=== PATIENT | female | born 1950 | race Caucasian/White ===

== ENCOUNTER → 2020-01-18 07:29 | Outpatient (REF) | payer MEDICARE, BC, SELFPAY ==
--- NOTE | 2020-01-18 07:41 | CA_ITS ---
Transthoracic Echocardiogram Patient (Last, First, Middle): Denise Rouse, Gender: Female Date of : 1950 Age: 69 Procedure Date: 01/18/2020 Procedure Type: Transthoracic Echocardiogram Location: OP Height: 162.56 cm Weight: 65.77 kg BSA: 1.71 m2 Heart Rate: bpm BP: 120 / 60 mmHg Care Manager Cna: GURVINDER Referring MD: Allen Mendez MD Symptoms: Z95.5 Presence of stent in anterior descending LCA, R06.02 Shortness of breath Study Quality: Good ECG Rhythm: Sinus Conclusions: - The left ventricular systolic function is normal. The visually estimated ejection fraction is between 55-60%. - There is mild mitral valve regurgitation. - There is mild tricuspid valve regurgitation. Findings Left Ventricle Normal left ventricular cavity size. There is normal left ventricular wall thickness. The left ventricular systolic function is normal. The visually estimated ejection fraction is between 55-60%. There is no evidence of regional wall motion abnormalities. Diastolic function is normal for age. Right Ventricle Normal right ventricular cavity size and systolic function. Atria Both atria are normal in size. Aortic Valve There is a normal trileaflet aortic valve. There is no aortic valve stenosis. There is no aortic valve regurgitation. Mitral Valve There is mild mitral annular calcification. There is mild mitral valve regurgitation. There is no mitral valve stenosis. Pulmonic Valve The pulmonic valve was not well visualized. There is trace pulmonic valve regurgitation. Tricuspid Valve Normal tricuspid valve structure. There is mild tricuspid valve regurgitation. The pulmonary artery systolic pressure is normal. Great Vessels The aortic annulus, sinuses of valsalva, and asc aorta are normal in size. Venous The inferior vena cava is normal in size and collapses greater than 50% with inspiration. Pericardium/Pleural There is no evidence of pericardial effusion. Prior Study Comparison No significant change compared to prior study dated: 04/15/2015. Measurements 2D Linear Measurements IVSd: 0.88 0.6-0.9/0.6-1.0 cm LVIDd: 4.37 3.9-5.3/4.2-5.9 cm LVIDd Index: 2.56 2.4-3.2/2.2-3.1 cm/m2 LVIDs: 2.91 2.0-3.6 cm LVPWd: 0.76 0.7-1.1 cm LA Diam: 3.30 2.7-3.8/3.0-4.0 cm LAIDs Index: 1.93 1.5-2.3 cm/m2 LV Mass: 138.97 67-162/88-224 g LV Mass Index: 81.27 43-95/49-115 g/m2 LVOT Diam: 2.00 3.0+(-)1.3 cm 2D Systolic Function EF 4C: 56.30 >55% EF 2C: 67.70 >55% EF BiP: 60.90 >55% Mitral Valve MV Pk E: 0.65 MV PK A: 0.80 MV Decel Time: 222.00 E/A: 0.80 E'Lateral: 8.22 E'Medial: 8.12 E/E' Med: 7.90 E/E' Lat: 7.80 PHT: 65.00 MVA PHT: 3.38 Decel [place]: 2.91 MR VTI: 0.76 Aortic Valve AoV Pk Cj: 0.96 AoV Pk Grad: 4.00 LVOT LVOT Pk Cj: 0.94 LVOT Mn Cj: 0.60 LVOT VTI: 0.20 LVOT Pk Grad: 4.00 LVOT Mn Grad: 2.00 LVOT Diam: 2.00 LVOT Area: 3.14 Diastolic Function MV Pk E: 0.65 MV Pk A: 0.80 E/A: 0.80 E'Medial: 8.12 E/E' Med: 7.90 E' Laterial: 8.22 E/E' Lat: 7.80 Tricuspid Valve TR Pk Cj: 1.98 TR Pk Grad: 16.00 RA Press: 3.00 RVSP: 19.00 Great Vessels Aorta Ao Asc: 3.10 2.1-3.4 cm Updated in Other Vendor System with Status of Final Allen Mendez MD electronically signed on 01/18/2020 2:34:09 PM with status of Final
== END ==
LOC: HO.CARD 07:29
PROVIDERS: PCP Internal Medicine; Visit Provider Internal Medicine
DX: R06.02 Shortness of breath (principal); I25.10 Atherosclerotic heart disease of native coronary artery without angina pectoris; Z95.5 Presence of coronary angioplasty implant and graft
CPT/HCPCS: 93306

== ENCOUNTER 2020-02-23 13:13 | Outpatient (REF) | payer MEDICARE, BC, SELFPAY | END 2020-02-23 13:14 | disposition home or self-care (01) | LOC: HO.LAB 13:13 | PROVIDERS: Visit Provider Internal Medicine | DX: Z20.828 Contact with and (suspected) exposure to other viral communicable diseases (principal) | CPT/HCPCS: C9803; U0003 ==

== ENCOUNTER 2020-10-29 12:49 | Outpatient (REF) | payer MEDICARE, BC, SELFPAY | END 2020-10-29 12:50 | disposition home or self-care (01) | LOC: HO.LAB 12:49 | PROVIDERS: PCP Internal Medicine; Visit Provider Internal Medicine | DX: Z20.822 Contact with and (suspected) exposure to COVID-19 (principal) | CPT/HCPCS: C9803; U0003; U0005 ==

== ENCOUNTER → 2020-12-26 08:30 | Outpatient (BNVA) | payer MEDICARE, BC, SELFPAY | PROVIDERS: PCP Internal Medicine; Visit Provider Internal Medicine | DX: I25.10 Atherosclerotic heart disease of native coronary artery without angina pectoris (principal); Z95.5 Presence of coronary angioplasty implant and graft | CPT/HCPCS: 93005; 99212 ==

== ENCOUNTER → 2021-12-18 08:40 | Outpatient (BNVA) | payer MEDICARE, BC, SELFPAY | PROVIDERS: PCP Internal Medicine; Referring Provider Internal Medicine; Visit Provider Internal Medicine | DX: I25.10 Atherosclerotic heart disease of native coronary artery without angina pectoris (principal); Z95.5 Presence of coronary angioplasty implant and graft | CPT/HCPCS: 93005; 99212 ==

== ENCOUNTER 2022-12-10 08:50 | Outpatient (AMB) | payer MEDICARE, BC, SELFPAY ==
[2022-12-10 09:21] VITALS: BP 112/60; PULSE 71; BMI 26.5
--- NOTE | 2022-12-10 09:21 | A.OFFVIS_ITS ---
Intake Vital Signs 12/10/22 09:21 Height 5 ft 4.5 in Weight 156 lb 8.451 oz BMI 26.5 BP 112/60 Blood Pressure Location Rt brachial Position Sitting Pulse 71 Intake Visit Reasons: 1 yr f/up Intake Note: 1 year follow up w/ EKG Pharmacy Tech Customer Service Required: No Accompanied by: Self / Same As Patient Allergies No Known Allergies [No Known Allergies*] Allergy (Verified 12/10/22 09:22) Medication List - Last Reconciled 12/10/22 by Allen Mendez MD aspirin (Adult Low Dose Aspirin) 81 mg PO DAILY atorvastatin 80 mg PO DAILY cholecalciferol (vitamin D3) 50 mcg PO DAILY metoprolol succinate ER 25 mg PO DAILY multivitamin 1 tab PO DAILY omega-3 fatty acids (Fish Oil Concentrate) 1,000 mg PO DAILY sertraline 100 mg PO DAILY HPI HPI Comments History of Present Illness Details Denise returns for follow-up regarding coronary artery disease.? To recall, she underwent cardiac catheterization and drug-eluting stenting of the LAD in 2015. She states that she is doing fine. No complaints like angina or shortness of breath or in fact anything cardiac sounding. She states she is getting along fine. Regular physical activity with no issues. [facility] Medical History (Updated 12/26/20 @ 08:54 by Allen Mendez MD) Atherosclerotic cardiovascular disease Surgical History Stented coronary artery H/O: hysterectomy H/O lumpectomy Family History Mother Heart disease Atrial fibrillation Heart valve replaced Dementia Father Heart disease Heart attack Alcoholic Brother CAD (coronary artery disease) Social History Alcohol intake: current Alcohol intake frequency: a few times a month Patient Tobacco Use Status: Never used Tobacco Review of Systems Const Denies weakness ENT Denies dizziness Card Denies chest pain, Denies chest pain with activity, Denies syncope, Denies rapid heart rate, Denies pedal edema, Denies edema, Denies leg edema, Denies lightheadedness, Denies palpitations, Denies dyspnea, Denies dyspnea on exertion and Denies orthopnea Resp Denies cough, Denies dyspnea and Denies dyspnea on exertion GI Denies hematochezia and Denies change in stool character Musc Denies abnormal gait, Denies muscle cramps, Denies muscle weakness, Denies numbness, Denies radiating pain into limb and Denies tingling Neuro Denies abnormal gait, Denies dizziness, Denies syncope, Denies numbness, Denies tingling and Denies weakness Endo Denies palpitations Physical Exam Vital Signs: Last Vital Signs Pulse 71 12/10/22 09:21 BP 112/60 12/10/22 09:21 BMI result Body Mass Index 26.5 Const General: comfortable and no acute distress Orientation/consciousness: patient oriented x3 HEENT Other: Unremarkable Head: Yes normal to inspection Neck Neck: Yes normal visual inspection Chest Chest palpation & inspection: normal inspection of the chest Resp Auscultation: clear to auscultation bilaterally Cardio Palpation: normal PMI Heart sounds: S1 normal heart sound present, S2 normal heart sound present, no gallops, no murmurs and no rubs GI Palpation (GI): Soft to palpation Back/Spine/Pelvis Other: unremarkable Skin General skin exam: no rashes or lesions noted Neuro General: patient oriented x3 Extrem General: Yes normal to inspection Psych Mental Status: mental status grossly normal Office Procedures EKG Details: EKG with sinus rhythm at 71/Min; no significant ST-T changes; [place] [id number], Complete Assessment & Plan Assessment & Plan (1) Atherosclerotic cardiovascular disease: Code(s): I25.10 - Atherosclerotic heart disease of [place] coronary artery without angina pectoris (2) Stented coronary artery: Code(s): Z95.5 - Presence of coronary angioplasty implant and graft Plan Overall, stable cardiac status. Continue aspirin, statins. LDL cholesterol well controlled at 68 mg/dL. Triglycerides 68 mg/dL. HDL 59 mg/dL. Follow-up in 1 year. Continue regular physical activity and maintain healthy lifestyle. If any interim concerns, she will contact us. Coding Level of Care Code Est Pt Level 3 (87839) Diagnoses Atherosclerotic cardiovascular disease I25.10 Stented coronary artery Z95.5 CPT Codes EKG - CPT: 14489-[id number], Complete ([id number])
== END 2022-12-10 09:37 | disposition home or self-care (01) ==
PROVIDERS: PCP Internal Medicine; Referring Provider Internal Medicine; Visit Provider Internal Medicine
DX: I25.10 Atherosclerotic heart disease of native coronary artery without angina pectoris (principal); Z95.5 Presence of coronary angioplasty implant and graft
CPT/HCPCS: 93010; 99213

== ENCOUNTER → 2022-12-10 08:50 | Outpatient (BNVA) | payer MEDICARE, BC, SELFPAY | PROVIDERS: PCP Internal Medicine; Referring Provider Internal Medicine; Visit Provider Internal Medicine | DX: I25.10 Atherosclerotic heart disease of native coronary artery without angina pectoris (principal); I10 Essential (primary) hypertension; Z95.5 Presence of coronary angioplasty implant and graft | CPT/HCPCS: 93005; 99212 ==

== ENCOUNTER 2023-01-20 11:08 | Emergency (ER) | payer MEDICARE, BC, SELFPAY ==
--- NOTE | ~2023-01-20 | XR_ITS ---
EXAMINATION: XR ABDOMEN KUB CLINICAL INDICATION: Constipation. No bowel movement since and of December COMPARISON: None available. TECHNIQUE: AP view of the abdomen. FINDINGS: Moderate fecal retention, air identified in the ascending colon and rectum. Solid visceral outlines are obscured. No abnormal calcifications. Lung bases are clear. Bony structures are intact. XR/XR KUB IMPRESSION: Moderate fecal retention.
[2023-01-20 11:15] VITALS: BP 150/66; PULSE 73; RESP 17; TEMP 36.4; O2SAT 98; BMI 28.0
--- NOTE | 2023-01-20 11:16 | ED.ABDPAIN ---
HPI - Abdominal Pain General Chief Complaint: General Medical Stated Complaint: constipation Time Seen by Provider: 01/20/23 14:27 Source: patient Mode of arrival: ambulatory Limitations: no limitations History of Present Illness HPI narrative: Patient is a 72 year old assigned female at with a history of atherosclerotic cardiovascular disease presenting to the emergency department today with constipation. Patient states that she has not had a full bowel movement since the end of December. Patient denies any dizziness, lightheadedness, abdominal pain, nausea, vomiting, fever, chills, blurry vision, double vision, loss of vision, chest pain, difficulty breathing, shortness of breath, back pain, night sweats, pain with urination, increased urinary frequency, increased urinary urgency, blood in her urine or stool, syncope or a near syncopal episode, recent trauma or falls, bowel incontinence, bladder incontinence, bowel retention, bladder retention, or any other complaints at this time. Pertinent past history: constipation Onset (ago): week(s) Pain Consistency: constant Related Data Home Medications Medication Instructions Recorded Confirmed aspirin 81 mg tablet,delayed 81 mg PO DAILY 12/26/20 12/10/22 release (Adult Low Dose Aspirin) atorvastatin 80 mg tablet 80 mg PO DAILY 12/26/20 12/10/22 cholecalciferol (vitamin D3) 50 50 mcg PO DAILY 12/26/20 12/10/22 mcg (2,000 unit) capsule metoprolol succinate 25 mg 25 mg PO DAILY 12/26/20 12/10/22 tablet,extended release 24 hr multivitamin 1 tab PO DAILY 12/26/20 12/10/22 omega-3 fatty acids 1,000 mg 1,000 mg PO DAILY 12/26/20 12/10/22 capsule (Fish Oil Concentrate) sertraline 100 mg tablet 100 mg PO DAILY 12/26/20 12/10/22 Allergies Allergy/AdvReac Type Severity Reaction Status Date / Time No Known Allergies Allergy Verified 12/10/22 09:22 [No Known Allergies*] Review of Systems Constitutional: Reports no additional constitutional complaints, Denies chills, Denies fever(s) and Denies night sweats Eyes: Reports no additional eye complaints, Denies blurry vision, Denies change in vision, Denies diplopia, Denies eye discharge, Denies loss of vision and Denies eye pain Denies dizziness Cardiovascular: Reports no additional cardiovascular complaints, Denies chest pain, Denies lightheadedness, Denies Loss of Consciousness and Denies dyspnea Respiratory: Reports no additional respiratory complaints and Denies dyspnea Gastrointestinal: Reports no additional gastrointestinal complaints, Denies abdominal pain, Denies melena, Denies hematochezia, Denies change in bowel habits, Denies change in stool character and Reports constipation Genitourinary: Denies hematuria, Denies urinary frequency, Denies dysuria, Denies urinary incontinence, Denies urinary hesitancy and Denies urinary urgency Musculoskeletal: Reports no additional musculoskeletal complaints, Denies numbness and Denies tingling Denies dizziness, Denies loss of vision, Denies numbness and Denies tingling Psychiatric: Reports no additional psychiatric complaints Endocrine: Reports no additional endocrine complaints Hematologic/Lymphatic: Reports no additional hematologic/lymphatic complaints Allergic/Immunologic: Reports no additional allergic/immunologic complaints PMFSH Past Medical History Attestation statement: The following information was validated with the patient. Source: old records reviewed and nursing notes reviewed Medical History Atherosclerotic cardiovascular disease Surgical History Stented coronary artery H/O: hysterectomy H/O lumpectomy Family History Family History Mother Heart disease Atrial fibrillation Heart valve replaced Dementia Father Heart disease Heart attack Alcoholic Brother CAD (coronary artery disease) Social History Social History Alcohol intake: current Alcohol intake frequency: a few times a month Patient Tobacco Use Status: Never used Tobacco Advance Directives: No Advance Directives Information Provided: Yes Physical Exam ED Vital Signs: Vital Signs - 24 hr 01/20/23 11:15 Temperature 97.5 F Pulse Rate 73 Respiratory Rate 17 Blood Pressure 150/66 H Pulse Oximetry 98 Oxygen Delivery Method Room Air BMI result Body Mass Index 28.0 Const General: cooperative, no acute distress, alert and awake Nutritional Appearance: well nourished Orientation/consciousness: patient oriented x3 Limitations: no limitations HENMT Head: Yes normal to inspection and Yes atraumatic Ears: hearing grossly normal bilaterally and external ears normal General nose exam: Normal external nose present, no nasal discharge noted and no epistaxis Face and sinus: Yes normal facial exam, No abrasion and No laceration Mouth: Normal oral and palatal mucosa present, no drooling and no muffled voice Eyes General: appearance normal, both eyes and all related structures Periorbital: periorbital findings normal Eyelids: Yes eyelids normal Conjunctivae: conjunctivae normal Pupils: Equal, round and reactive pupils present EOM: EOMs intact bilaterally Neck Neck: Yes normal visual inspection, Yes full ROM and Yes no lymphadenopathy Chest Chest palpation & inspection: normal inspection of the chest Resp Effort & Inspection: normal respiratory effort and able to speak in complete sentences GI Inspection: Yes normal to inspection Palpation (GI): Soft to palpation, not firm, nontender and no guarding Neuro General: patient oriented x3 and moves all extremities Cranial nerves: Yes Equal, round and reactive pupils present Cognition (Neuro): normal cognition Motor exam (neuro): 5/5 motor strength present throughout Sensory Exam: Normal double simultaneous stimulation for sensation Coordination: [id number] test normal Extrem General: Yes normal to inspection, Yes full ROM and Yes capillary refill normal Psych Appearance: grossly normal Mental Status: mental status grossly normal Affect: normal affect Attitude: cooperative Thought process: Normal thought process present Thought content: Normal thought content present Insight: Good insight present (Psych) Course Course Course Narrative: RME - 72 yo female presenting with constipation for the last 2.5 weeks. No BM since the end of December. Saw Dr. Mcnair on 01/07 and has been on Miralax daily with no effect. Passing gas. No vomiting. Hx fecal impaction requiring disimpaction in the past. Plan: basic labs, KUB, CHRISTOPHER Medical Decision Making Medical Decision Making MDM Narrative: Patient is a 72 year old assigned female at with a history of atherosclerotic cardiovascular disease presenting to the emergency department today with constipation. Patient's physical exam was unremarkable. Patient's blood work was unremarkable. Patient's KUB x-ray showed moderate fecal retention. I explained my physical exam findings as well as all test results to the patient. I answered all questions asked by the patient. I recommended the patient have an enema and manual disimpaction while in the department. Patient declined and stated she would rather have an enema at home. I stressed the importance of the patient taking her medication as prescribed. I stressed the importance of the patient following up with her primary care provider. I stressed the importance of the patient returning to the emergency department immediately if her symptoms were to worsen or if she were to develop any dizziness, shortness of breath, difficulty breathing, chest pain, blurry vision, loss of vision, nausea, vomiting, abdominal pain, fever, chills, back pain, or any other complaints. Patient verbalized agreement and understanding with this treatment plan and discharge. Differential Diagnosis Differential Diagnoses: The differential diagnosis associated with the presentation includes Fecal impaction Constipation Admission/Observation Consideration of admission/observation: Escalation of care including admission/observation considered Patient would have been admitted to the hospital had her work up had any findings where hospital admission was appropriate and her clinical presentation warranted hospital admission. Lab Data MDM Lab Attestation statement: I reviewed the patient's lab results. My interpretation of these studies and their corresponding values is that they are grossly normal. 01/20/23 11:24 01/20/23 11:24 Labs: Lab Results 01/20/23 Range/Units 11:24 WBC 8.2 (4.8-10.8) X10*3/uL RBC 4.43 (4.20-5.50) X10*6/uL Hgb 13.4 (12.0-16.0) g/dl Hct 39.8 (37.0-47.0) % MCV 89.8 (80.0-98.0) fL MCH 30.2 (27.0-33.0) pg MCHC 33.7 (31.0-35.0) g/dl RDW 12.8 (11.0-16.0) % Plt Count 260 (160-400) X10*3/uL MPV 10.2 (9.4-12.3) fL Immature Gran % (Auto) 0.2 (0.0-0.4) % Neut % (Auto) 66.2 (45-73) % Lymph % (Auto) 23.5 (20-40) % [place] % (Auto) 8.1 (2-11) % Eos % (Auto) 1.8 (0-4) % Baso % (Auto) 0.2 (0-2) % Lymph # (Auto) 1.9 (1.2-4.9) X10*3/uL [place] # (Auto) 0.7 (0.1-1.2) X10*3/uL Eos # (Auto) 0.2 (0.0-0.4) X10*3/uL Baso # (Auto) 0.0 (0.0-0.2) X10*3/uL Abs Immat Gran (auto) 0.02 (0.00-0.03) X10*3/uL Absolute Neuts (auto) 5.4 (2.0-8.3) x10*3/uL Absolute Nucleated RBC 0.000 (0.0-0.012) X10*3/uL Nucleated RBC % (auto) 0.0 (0.0-0.2) /100WBC Sodium 139 (135-145) mmol/L Potassium 4.7 (3.3-5.1) mmol/L Chloride 105 (96-108) mmol/L Carbon Dioxide 27 (22-29) mmol/L Anion Gap 12 (12-20) BUN 18 H (9-16) mg/dL Creatinine 0.87 (0.5-1.4) mg/dL Estim Creat Clear Calc 56.7 Estimated GFR > 60 Random Glucose 95 (60-115) mg/dL Calcium 10.3 H (8.4-10.2) mg/dL Magnesium 2.4 (1.6-2.6) mg/dL Total Bilirubin 0.4 (0.0-1.0) mg/dL Direct Bilirubin 0.2 (0.0-0.5) mg/dL AST 27 (5-31) U/L ALT 23 (0-31) U/L Alkaline Phosphatase 68 (39-117) U/L Total Protein 7.9 (6.5-8.0) g/dL Albumin 4.2 (3.5-5.0) g/dL Independent Interpretation I performed an independent interpretation of an: Plain X-Ray Interpretation: My interpretation is in agreement with the radiologist's impression of this imaging study. EXAMINATION: XR ABDOMEN KUB CLINICAL INDICATION: Constipation. No bowel movement since and of December COMPARISON: None available. TECHNIQUE: AP view of the abdomen. FINDINGS: Moderate fecal retention, air identified in the ascending colon and rectum. Solid visceral outlines are obscured. No abnormal calcifications. Lung bases are clear. Bony structures are intact. XR/XR KUB IMPRESSION: Moderate fecal retention. Dictated By: Cheli Rubi MD Signed By: Electronically signed by Cheli Rubi MD 01/20/23 2875 Radiology Impression Discussion of test interpretation with radiology: I have reviewed the radiologist's reading. Discharge Plan Discharge Clinical Impression: Constipation Patient Disposition: Home, Self-Care Instructions: Constipation (DC) Additional Instructions: Obtain an over the counter enema from your preferred pharmacy and administer it at home. You may also try magnesium citrate, a liquid you can also obtain from your local pharmacy. Follow up with your primary care provider. Return to the emergency department immediately if your symptoms worsen or if you develop any dizziness, shortness of breath, difficulty breathing, chest pain, blurry vision, loss of vision, nausea, vomiting, abdominal pain, fever, chills, back pain, or any other complaints. Prescriptions: No Action cholecalciferol (vitamin D3) 50 mcg (2,000 unit) capsule 50 mcg PO DAILY metoprolol succinate 25 mg tablet extended release 24 hr 25 mg PO DAILY atorvastatin 80 mg tablet 80 mg PO DAILY sertraline 100 mg tablet 100 mg PO DAILY multivitamin Tablet 1 tab PO DAILY aspirin [Adult Low Dose Aspirin] 81 mg tablet,delayed release (DR/EC) 81 mg PO DAILY omega-3 fatty acids [Fish Oil Concentrate] 1,000 mg capsule 1,000 mg PO DAILY Referrals: Warren Macdonald MD [Primary Care Provider] - Interventions: ED Discharge Assessment Last Done: 01/20/23 14:59 Discharge Date/Time: 01/20/23 15:01 Print Language: Kiswahili
[2023-01-20 11:30] LABS: MANUAL DIFF FLAG NO
[2023-01-20 11:34] LABS: Basophils Percent Auto 0.2 % (0-2); Eosinophils Absolute Auto 0.2 X10*3/uL (0.0-0.4); Eosinophils Percent Auto 1.8 % (0-4); Hematocrit 39.8 % (37.0-47.0); Hemoglobin 13.4 g/dl (12.0-16.0); Imm Gran Abs Auto 0.02 X10*3/uL (0.00-0.03); Imm Gran Pct Auto 0.2 % (0.0-0.4); Lymphocytes Absolute Auto 1.9 X10*3/uL (1.2-4.9); Lymphocytes Percent Auto 23.5 % (20-40); Mean Corpuscular HGB Conc 33.7 g/dl (31.0-35.0); Mean Corpuscular Hemoglobin 30.2 pg (27.0-33.0); Mean Corpuscular Volume 89.8 fL (80.0-98.0); Mean Platelet Volume 10.2 fL (9.4-12.3); Monocytes Absolute Auto 0.7 X10*3/uL (0.1-1.2); Monocytes Percent Auto 8.1 % (2-11); Neutrophils Absolute Auto 5.4 x10*3/uL (2.0-8.3); Neutrophils Percent Auto 66.2 % (45-73); Platelet Count 260 X10*3/uL (160-400); Red Blood Count 4.43 X10*6/uL (4.20-5.50); Red Cell Distribution Width 12.8 % (11.0-16.0); White Blood Count 8.2 X10*3/uL (4.8-10.8)
[2023-01-20 11:51] LABS: Alanine Aminotransferase 23 U/L (0-31); Albumin Level 4.2 g/dL (3.5-5.0); Alkaline Phosphatase 68 U/L (39-117); Anion Gap 12 (12-20); Aspartate Amino Transferase 27 U/L (5-31); Bilirubin Direct 0.2 mg/dL (0.0-0.5); Bilirubin Total 0.4 mg/dL (0.0-1.0); Blood Urea Nitrogen 18 mg/dL (9-16); Calcium 10.3 mg/dL (8.4-10.2); Carbon Dioxide 27 mmol/L (22-29); Chloride 105 mmol/L (96-108); Creatinine Clr Calc Pharmacy 56.7; Estimated Glomerular Filt Rate > 60; Glucose Random 95 mg/dL (60-115); Magnesium 2.4 mg/dL (1.6-2.6); Potassium 4.7 mmol/L (3.3-5.1); Sodium 139 mmol/L (135-145); Total Protein 7.9 g/dL (6.5-8.0)
== END 2023-01-20 15:01 | disposition home or self-care (01) ==
PROVIDERS: Physician Assistant; Emergency Provider Emergency Medicine Emergency Medical Services; PCP Internal Medicine
DX: K59.00 Constipation, unspecified (principal); Z79.899 Other long term (current) drug therapy
CPT/HCPCS: 36415; 74018; 80048; 80076; 83735; 85025; 99282; 99283

== ENCOUNTER 2023-02-23 07:22 | Day surgery (SDC) | payer MEDICARE, BC, SELFPAY ==
[2023-02-18 15:11] VITALS: BMI 27.8
--- NOTE | 2023-02-22 08:47 | HO.ANESPROP2 ---
Documented by User: iLz Lin NP 02/22/23 08:49 HPI - Anesthesia Eval Consult details Narrative: 72yo F for Upper Endoscopy and Colonoscopy s/p cardiac catheterization and drug-eluting stenting of the LAD in 2016 [facility] Active Problems Active Problems: All Active Problems (Updated 02/18/23 @ 15:07 by Brenda Rios RN) Stented coronary artery (Acute) Atherosclerotic cardiovascular disease (Acute) Past Medical History Medical History Elevated cholesterol Atherosclerotic cardiovascular disease Family History Family History Mother Heart disease Atrial fibrillation Heart valve replaced Dementia Father Heart disease Heart attack Alcoholic Brother CAD (coronary artery disease) Surgical History Surgical History H/O colonoscopy Hx of heart artery stent Stented coronary artery H/O: hysterectomy H/O lumpectomy Social History Social History Alcohol intake: current Alcohol intake frequency: a few times a month Patient Tobacco Use Status: Never used Tobacco Use of substances other than those prescribed or required for medical reasons: No Are you DNR?: No Advance Directives: No Advance Directives Information Provided: Yes Recently lost weight without trying: No Meds Allergies Allergy/AdvReac Type Severity Reaction Status Date / Time No Known Allergies Allergy Verified 12/10/22 09:22 [No Known Allergies*] Home Medications Medication Instructions Recorded Confirmed Last Taken Type aspirin 81 mg tablet,delayed 81 mg PO DAILY 12/26/20 02/18/23 Unknown History release (Adult Low Dose Aspirin) atorvastatin 80 mg tablet 80 mg PO DAILY 12/26/20 02/18/23 Unknown History cholecalciferol (vitamin D3) 50 50 mcg PO DAILY 12/26/20 02/18/23 Unknown History mcg (2,000 unit) capsule metoprolol succinate 25 mg 25 mg PO DAILY 12/26/20 02/23/23 02/23/23 06:00 History tablet,extended release 24 hr 25 multivitamin 1 tab PO DAILY 12/26/20 02/18/23 Unknown History omega-3 fatty acids 1,000 mg 1,000 mg PO DAILY 12/26/20 02/18/23 Unknown History capsule (Fish Oil Concentrate) sertraline 100 mg tablet 100 mg PO DAILY 12/26/20 02/23/23 02/23/23 06:00 History 25 Exam Height,Weight and Vital Signs: Height 5 ft 4 in Weight 73.482 kg Pertinent Lab Results Pertinent Lab Results: Laboratory Tests 01/20/23 11:24 WBC 8.2 Hgb 13.4 Hct 39.8 Plt Count 260 Sodium 139 Potassium 4.7 Chloride 105 Carbon Dioxide 27 BUN 18 H Creatinine 0.87 Narrative Narrative: EKG 12/2022 sinus rhythm at 71/Min; no significant ST-T changes; normal IN and corrected QT Assessment and Plan Assessment Anesthesia Assessment: Chart Reviewed Documented by User: Lizbet Mchugh MD 02/23/23 08:45 [facility] Past Medical History Medical History Elevated cholesterol Atherosclerotic cardiovascular disease Family History Family History Mother Heart disease Atrial fibrillation Heart valve replaced Dementia Father Heart disease Heart attack Alcoholic Brother CAD (coronary artery disease) Surgical History Surgical History H/O colonoscopy Hx of heart artery stent Stented coronary artery H/O: hysterectomy H/O lumpectomy History of Problems with Anesthesia: No Social History Social History Alcohol intake: current Alcohol intake frequency: a few times a month Patient Tobacco Use Status: Never used Tobacco Use of substances other than those prescribed or required for medical reasons: No Are you DNR?: No Advance Directives: No Advance Directives Information Provided: Yes Recently lost weight without trying: No Meds Allergies Allergy/AdvReac Type Severity Reaction Status Date / Time No Known Allergies Allergy Verified 12/10/22 09:22 [No Known Allergies*] Home Medications Medication Instructions Recorded Confirmed Last Taken Type aspirin 81 mg tablet,delayed 81 mg PO DAILY 12/26/20 02/18/23 Unknown History release (Adult Low Dose Aspirin) atorvastatin 80 mg tablet 80 mg PO DAILY 12/26/20 02/18/23 Unknown History cholecalciferol (vitamin D3) 50 50 mcg PO DAILY 12/26/20 02/18/23 Unknown History mcg (2,000 unit) capsule metoprolol succinate 25 mg 25 mg PO DAILY 12/26/20 02/23/23 02/23/23 06:00 History tablet,extended release 24 hr 25 multivitamin 1 tab PO DAILY 12/26/20 02/18/23 Unknown History omega-3 fatty acids 1,000 mg 1,000 mg PO DAILY 12/26/20 02/18/23 Unknown History capsule (Fish Oil Concentrate) sertraline 100 mg tablet 100 mg PO DAILY 12/26/20 02/23/23 02/23/23 06:00 History 25 Exam Airway Mallampati Class: III TM Dist: >3cm Neck ROM: Full Loose/Missing/Broken Teeth: No Heart: RRR Lungs: CTA Assessment and Plan Assessment Anesthesia Assessment: Anesthesia Plan Discussed Final Anesthetic Review History of Problems with Anesthesia: No NPO: Yes ASA Class: III Final Preanesthetic Review: Meds/Allgs Chart Reviewed, Consent Obtained/Reviewed and Anes Risks/Benef Reviewed Patient Risk: Intermediate Procedure Risk: Intermediate Anesthetic Plan Anesthetic Plan: MAC: Disposition: Standard PACU
[2023-02-23 07:29] VITALS: BMI 27.5
[2023-02-23 07:49] VITALS: BP 138/75; PULSE 75; RESP 20; TEMP 36.4; O2SAT 99
[2023-02-23] MEDS: Lactated Ringers 1,000 ML 100 ML IVCONT (07:59)
--- NOTE | 2023-02-23 08:23 | MHC.SHP ---
Pre-Procedural Eval Section A Date of Service: 02/23/23 Section B Chief Complaint: gerd, Encounter for screening for malignant neopla Details of Present Illness: see H&P and addendum Relevant Family History (Specify if Yes): No Relevant Social History: None Present Medications: see Short Stay Collaborative assessment Medical History: No relevant PMH History of Previous Operations: No relevant previous surgery Allergies: Allergies Allergy/AdvReac Type Severity Reaction Status Date / Time No Known Allergies Allergy Verified 12/10/22 09:22 [No Known Allergies*] Review of Systems Sugical H&P ROS: Negative: Constitution, Cardiovascular, Respiratory, Neurological, Psychiatric, Hem-Onc, Allergic/Immunologic, Gastrointestinal, Genitourinary, Musculoskeletal, Integumentary, Endocrine and Eyes/Ears/Nose/Throat Exam Surgical H&P Exam: Normal: HEENT, Normal: Heart, Normal: Lungs, Normal: Extremities, Normal: Abdomen, Normal: Skin and Normal: Neurological Plan Diagnosis/Plan: Unchanged I have reviewed the history and physical and performed a pertinent physical examination on my patient. No changes have occurred unless specified. Time Spent With Patient Time: Total time managing care of this patient today ____ minutes.
[2023-02-23 09:04] VITALS: BP 115/53; PULSE 76; RESP 18; TEMP 36.1; O2SAT 99
[2023-02-23 09:20] VITALS: BP 155/76; PULSE 65; RESP 16; TEMP 36.2; O2SAT 100
--- NOTE | 2023-02-23 09:20 | OP_ITS ---
DATE OF SERVICE: 02/23/2023 SURGEON: Gigi Mcnair MD INDICATIONS: 1. Gastroesophageal reflux disease. 2. Change in bowel habits. PREOPERATIVE DIAGNOSIS: POSTOPERATIVE DIAGNOSIS: PROCEDURE PERFORMED: Upper endoscopy with biopsy, colonoscopy to the terminal ileum with biopsy. ESTIMATED BLOOD LOSS: COMPLICATIONS: ANESTHESIA: Monitored anesthesia care. ASSISTANTS: SPECIMENS: DESCRIPTION OF PROCEDURE: A history and physical performed. The risks and benefits of the procedure were explained to the patient. Informed consent was obtained. The patient was placed in the left lateral decubitus position. The Olympus video gastroscope was introduced into the esophagus, stomach, and duodenum. Examination was performed and the scope was removed, she tolerated the procedure well and was repositioned for colonoscopy. A digital rectal exam was performed and was found to be normal. The Olympus pediatric video colonoscope was introduced into the rectum and advanced to the cecum. The cecum was identified by transillumination, palpation, and identification of ileocecal valve. Examination was performed and the scope was removed. She tolerated both procedures well and was taken to recovery in stable condition. FINDINGS: Upper endoscopy: 1. Esophagus: The esophagus was normal. There was a small sliding hiatal hernia. Biopsies were obtained from the EG junction. 2. Stomach: Showed no evidence of masses, ulcers, or polyps. Antral biopsies were obtained to evaluate for H pylori. 3. Duodenum: The bulb and 2nd portion were normal. Colonoscopy: The terminal ileum was examined and appeared normal. The visualized colonic mucosa was normal. The quality of prep was good. No polyps were identified. Random sigmoid biopsies were obtained. Retroflexed evaluation showed small internal hemorrhoids. IMPRESSION: 1. Gastroesophageal reflux disease. 2. Normal colonoscopy. RECOMMENDATION: Follow up the biopsy results. Screening colonoscopy in 10 years is optional based on age. MD ALBAN Matthews/LINDAL / [id number] MTDD
== END 2023-02-23 10:07 | disposition home or self-care (01) ==
PROVIDERS: PCP Internal Medicine; Visit Provider Internal Medicine Gastroenterology
PROC: (CPT 43239; principal; 2023-02-23 08:30)
DX: K21.9 Gastro-esophageal reflux disease without esophagitis (principal); K44.9 Diaphragmatic hernia without obstruction or gangrene; Z12.11 Encounter for screening for malignant neoplasm of colon; K64.8 Other hemorrhoids; R19.4 Change in bowel habit; E78.5 Hyperlipidemia, unspecified; Z85.3 Personal history of malignant neoplasm of breast; Z95.5 Presence of coronary angioplasty implant and graft; Z79.82 Long term (current) use of aspirin
CPT/HCPCS: 43239; 45380; 88305; 88342; J2704

== ENCOUNTER 2023-12-16 08:47 | Outpatient (REF) | payer MEDICARE, BC, SELFPAY ==
[2023-12-16 11:00] LABS: Hematocrit 39.1 % (37.0-47.0); Mean Corpuscular HGB Conc 33.2 g/dl (31.0-35.0); Mean Corpuscular Volume 90.3 fL (80.0-98.0); Mean Platelet Volume 10.8 fL (9.4-12.3); Platelet Count 255 X10*3/uL (160-400); Red Blood Count 4.33 X10*6/uL (4.20-5.50); Red Cell Distribution Width 13.2 % (11.0-16.0); White Blood Count 6.3 X10*3/uL (4.8-10.8)
[2023-12-16 11:38] LABS: TSH reflex Free T4 3.59 uIU/mL (0.32-4.0)
== END 2023-12-16 08:48 | disposition home or self-care (01) ==
LOC: HO.LAB 08:47
PROVIDERS: PCP Internal Medicine; Visit Provider Internal Medicine
DX: I25.10 Atherosclerotic heart disease of native coronary artery without angina pectoris (principal); R94.6 Abnormal results of thyroid function studies; R07.2 Precordial pain; Z95.5 Presence of coronary angioplasty implant and graft
CPT/HCPCS: 36415; 84443; 85027; 93005; 99212

== ENCOUNTER 2023-12-16 08:47 | Outpatient (AMB) | payer MEDICARE, BC, SELFPAY ==
[2023-12-16 08:49] VITALS: BP 134/64; PULSE 73; BMI 27.2
--- NOTE | 2023-12-16 08:49 | MHC.OFFVIS ---
Vital Signs 12/16/23 08:49 Height 5 ft 4 in Weight 158 lb 4.67 oz BMI 27.2 BP 134/64 Blood Pressure Location Rt brachial Position Sitting Pulse 73 Pulse Source Monitor Intake Visit Reasons: 1Y follow up Radio Station Engineer Required: No Accompanied by: Significant Other Allergies No Known Allergies [No Known Allergies*] Allergy (Verified 12/10/22 09:22) Medication List - Last Reconciled 12/16/23 by Allen Mendez MD aspirin (Adult Low Dose Aspirin) 81 mg PO DAILY atorvastatin 80 mg PO DAILY cholecalciferol (vitamin D3) 50 mcg PO DAILY metoprolol succinate ER 25 mg PO DAILY multivitamin 1 tab PO DAILY omega-3 fatty acids (Fish Oil Concentrate) 1,000 mg PO DAILY sertraline 50 mg PO DAILY HPI Comments Details: Denise returns for follow-up regarding coronary artery disease.? To recall, she underwent cardiac catheterization and drug-eluting stenting of the LAD in 2016. She does not have any overt symptoms like angina. Recently, she has been noticing some symptoms like feeling fatigue and tired. Not able to keep up when she is walking outside. Some shortness of breath as well with activity. [facility] Medical History Elevated cholesterol Atherosclerotic cardiovascular disease Surgical History H/O colonoscopy Hx of heart artery stent Stented coronary artery H/O: hysterectomy H/O lumpectomy Family History Mother Heart disease Atrial fibrillation Heart valve replaced Dementia Father Heart disease Heart attack Alcoholic Brother CAD (coronary artery disease) Social History Alcohol intake: current Alcohol intake frequency: a few times a month Patient Tobacco Use Status: Never used Tobacco Review of Systems Const Denies chills, Denies fatigue, Denies fever(s), Denies frequent falls, Denies weakness, Denies weight gain and Denies weight loss ENT Denies dizziness Card Denies chest pain, Denies leg edema, Denies lightheadedness, Denies palpitations, Denies dyspnea and Denies dyspnea on exertion Resp Denies cough, Denies dyspnea and Denies dyspnea on exertion GI Denies hematochezia Musc Denies abnormal gait, Denies muscle weakness, Denies numbness, Denies radiating pain into limb and Denies tingling Neuro Denies abnormal gait, Denies dizziness, Denies frequent falls, Denies numbness, Denies tingling and Denies weakness Endo Denies fatigue and Denies palpitations Physical Exam Vital Signs: Last Vital Signs Pulse 73 12/16/23 08:49 BP 134/64 12/16/23 08:49 BMI result Body Mass Index 27.2 Const General: comfortable and no acute distress Orientation/consciousness: patient oriented x3 HEENT Other: Unremarkable Head: Yes normal to inspection Neck Neck: Yes normal visual inspection Chest Chest palpation & inspection: normal inspection of the chest Resp Auscultation: clear to auscultation bilaterally Cardio Palpation: normal PMI Heart sounds: S1 normal heart sound present, S2 normal heart sound present, no gallops, no murmurs and no rubs GI Palpation (GI): Soft to palpation Back/Spine/Pelvis Other: unremarkable Skin General skin exam: no rashes or lesions noted Neuro General: patient oriented x3 Extrem General: Yes normal to inspection Psych Mental Status: mental status grossly normal Office Procedures EKG Details: EKG with underlying sinus rhythm at 73/Min; no significant ST-T changes; [place] [id number], Complete Assessment & Plan Assessment & Plan (1) Atherosclerotic cardiovascular disease: Code(s): I25.10 - Atherosclerotic heart disease of [place] coronary artery without angina pectoris Category: Medical (2) Stented coronary artery: Code(s): Z95.5 - Presence of coronary angioplasty implant and graft Category: Surgical Plan Cardiac catheterization-2016; drug-eluting stent to proximal and mid LAD. Balloon angioplasty of ostial 1st diagonal. Diffuse severe disease in distal LAD. Mid circumflex with 40% stenosis. Recent exercise intolerance but not clear if it is cardiac or not. We will check some labs including CBC; she states she has abnormal thyroid function in the past and hence we can recheck that. Obtain echocardiogram and exercise stress perfusion imaging study. LDL cholesterol 63 mg/dL; triglycerides 70 mg/dL. Will follow-up after the testing. Orders: Orders TSH reflex Free T4 Today R94.6 - Abnormal results of thyroid function studies CA echo transthoracic complete Today I25.10 - Atherosclerotic heart disease of [place] coronary artery without angina pectoris CA stress test Today I25.10 - Atherosclerotic heart disease of [place] coronary artery without angina pectoris, R07.2 - Precordial pain NM cardiolite stress test Today I25.10 - Atherosclerotic heart disease of [place] coronary artery without angina pectoris, R07.2 - Precordial pain Complete Blood Count no Diff Today I25.10 - Atherosclerotic heart disease of [place] coronary artery without angina pectoris Coding Level of Care Code Est Pt Level 4 (95992) Diagnoses Atherosclerotic cardiovascular disease I25.10 Stented coronary artery Z95.5 CPT Codes EKG - CPT: 02697-[id number], Complete ([id number])
== END 2023-12-16 09:18 | disposition home or self-care (01) ==
PROVIDERS: PCP Internal Medicine; Visit Provider Internal Medicine
DX: I25.10 Atherosclerotic heart disease of native coronary artery without angina pectoris (principal); Z95.5 Presence of coronary angioplasty implant and graft
CPT/HCPCS: 93010; 99214

== ENCOUNTER → 2024-01-06 13:44 | Outpatient (REF) | payer MEDICARE, BC, SELFPAY ==
--- NOTE | 2024-01-06 13:47 | CA_ITS ---
Transthoracic Echocardiogram Patient (Last, First, Middle): Denise Rouse, Gender: Female Date of : 1950 Age: 73 Procedure Date: 01/06/2024 Procedure Type: Transthoracic Echocardiogram Location: OP Height: 162.56 cm Weight: 72.58 kg BSA: 1.78 m2 Heart Rate: bpm BP: 110 / 62 mmHg Business Process Specialist: TO Referring MD: Allen Mendez MD Soybean Grower: Avni Alaniz MD Symptoms: I25.10 - Atherosclerotic heart disease of [place] coronary artery without... Study Quality: Adequate ECG Rhythm: Sinus Conclusions: - 1. Normal LV ejection fraction 55-60% with impaired relaxation filling pattern 2. Mild mitral regurgitation 3. Normal RV systolic pressure 4. No gross pericardial effusion Findings Left Ventricle Normal left ventricular size, thickness, and systolic function. The visually estimated ejection fraction is between 55-60%. Spectral Doppler is indicative of an impaired relaxation filling pattern. E/E prime ratio is between 8 and 15 consistent with indeterminate filling pressures. Peak GLS is -18.0%, within normal limits. Right Ventricle Normal right ventricular cavity size and systolic function. Atria The left atrium is likely dilated. There is no evidence of interatrial shunt. The right atrium is normal in size. Aortic Valve Normal aortic valve structure and function. There is no aortic valve stenosis. There is no aortic valve regurgitation. Mitral Valve There is mild anterior and moderate posterior mitral leaflet thickening. There is mild mitral annular calcification. There is bowing of the posterior mitral leaflet without obvious prolapse. There is mild mitral valve regurgitation. There is no mitral valve stenosis. Pulmonic Valve The pulmonic valve is likely normal. There is trace pulmonic valve regurgitation. Tricuspid Valve Normal tricuspid valve structure. There is trace tricuspid valve regurgitation. The right ventricular systolic pressure is normal. The right ventricular systolic pressure is 19 mmHg. Normal right atrial pressure. There is no evidence of pulmonary hypertension. Great Vessels The pulmonary artery was not well visualized. There is no dilatation of the ascending aorta measuring 3.30 cm. Small plaque is seen in the sino tubular ridge. Venous The inferior vena cava is normal in size and collapses greater than 50% with inspiration. Pericardium/Pleural There is no evidence of pericardial effusion. Measurements 2D Linear Measurements IVSd: 0.95 0.6-0.9/0.6-1.0 cm LVIDd: 4.30 3.9-5.3/4.2-5.9 cm LVIDd Index: 2.42 2.4-3.2/2.2-3.1 cm/m2 LVIDs: 2.62 2.0-3.6 cm LVPWd: 0.78 0.7-1.1 cm LA Diam: 3.80 2.7-3.8/3.0-4.0 cm LAIDs Index: 2.13 1.5-2.3 cm/m2 LV Mass: 146.25 67-162/88-224 g LV Mass Index: 82.16 43-95/49-115 g/m2 LVOT Diam: 2.10 3.0+(-)1.3 cm 2D Systolic Function EF 4C: 58.20 >55% EF 2C: 57.90 >55% EF BiP: 58.20 >55% Mitral Valve MV VTI: 0.32 MV Pk Cj: 0.90 MV Mn Cj: 0.60 MV Pk Grad: 3.00 MV Mn Grad: 2.00 MV Pk E: 0.85 MV PK A: 0.78 MV Decel Time: 242.00 E/A: 1.10 E'Lateral: 6.85 E'Medial: 6.31 E/E' Med: 13.40 E/E' Lat: 12.40 PHT: 71.00 MVA PHT: 3.10 MVA Continuity: 1.97 Decel [place]: 3.51 Aortic Valve AoV Pk Cj: 1.03 AoV Mn Cj: 0.72 AoV VTI: 0.24 AoV Pk Grad: 4.00 Aov Mn Grad: 2.00 ALANNAH Cont.VTI: 2.61 LVOT LVOT Pk Cj: 0.94 LVOT Mn Cj: 0.57 LVOT VTI: 0.18 LVOT Pk Grad: 4.00 LVOT Mn Grad: 2.00 LVOT Diam: 2.10 LVOT Area: 3.46 Diastolic Function MV Pk E: 0.85 MV Pk A: 0.78 E/A: 1.10 E'Medial: 6.31 E/E' Med: 13.40 E' Laterial: 6.85 E/E' Lat: 12.40 Right Ventricle TAPSE (mm): 20.40 TVS' Cj: 11.60 Tricuspid Valve TR Pk Cj: 2.00 TR Pk Grad: 16.00 RA Press: 3.00 RVSP: 19.00 Great Vessels Aorta Sinus of Valsalva: 3.11 2.0-3.[address] [place]: 2.07 1.7-3.4 cm Ao Asc: 3.30 2.1-3.4 cm Updated in Other Vendor System with Status of Final Avni Alaniz MD electronically signed on 01/07/2024 12:57:23 PM with status of Final
== END ==
LOC: HO.CARD 13:44
PROVIDERS: PCP Nurse Practitioner Family; Visit Provider Internal Medicine
DX: I25.10 Atherosclerotic heart disease of native coronary artery without angina pectoris (principal)
CPT/HCPCS: 93306; 93356

== ENCOUNTER → 2024-01-06 13:47 | Outpatient (BNV) | payer MEDICARE, BC, SELFPAY | PROVIDERS: PCP Nurse Practitioner Family; Visit Provider Internal Medicine Cardiovascular Disease | DX: I34.0 Nonrheumatic mitral (valve) insufficiency (principal); I34.81 Nonrheumatic mitral (valve) annulus calcification | CPT/HCPCS: 93306; 93356 ==

== ENCOUNTER → 2024-07-04 07:44 | Outpatient (REF) | payer MEDICARE, BC, SELFPAY ==
--- NOTE | ~2024-07-04 | NM_ITS ---
EXERCISE MYOCARDIAL PERFUSION STUDY INDICATION: Coronary artery disease, prior stent TECHNIQUE: The patient was brought in for an exercise perfusion study on 07/04/2024. Patient performed exercise as per Goldy protocol and was injected 25 mCi of sestamibi once target heart rate was achieved. Images were obtained using the SPECT gamma camera interlaced with the gating device. Images were obtained in supine position. Resting perfusion study was performed on 07/05/2024. Patient was administered 25 mCi of sestamibi intravenously at rest. Images were then obtained in supine position. Total DLP 77 mGy-cm. Images were processed with the software and compared side to side in short axis, horizontal long axis and vertical long axis views. FINDINGS: Raw aquisition reviewed. The stress perfusion study showed mildly reduced tracer uptake at the anterior apex. No significant change with CT attenuation correction. The gated study shows normal LV systolic function with calculated LVEF of 69%. LV cavity is normal in size. The gated study shows normal wall thickening and contraction of segments. Resting study shows mildly decreased tracer uptake of the anterior apex. Seen with uncorrected as well as CT attenuation corrected images. Gating at rest reveals normal wall motion with ejection fraction at 54%. The findings are consistent with no clear reversible defects. Fixed effect in the anterior apex which could be artifactual. Less likely prior nontransmural infarct. NM/NM cardiolite stress test IMPRESSION: 1. Myocardial perfusion imaging study shows no evidence of ischemia. Fixed defect of the anterior apex which could be artifactual but cannot exclude a small prior nontransmural infarct. 2. Gated LVEF is 69% during stress and 54% during rest. 3. Transient ischemic dilatation not present. EKG component of the test reported separately. Electronically signed by: Allen Mendez MD 07/06/2024 03:36 PM EDT
--- NOTE | 2024-07-04 07:47 | CA_ITS ---
Acquisition Time: 2024-07-04 08:05:32 Total Exercise Time: 00:05:01 Test Indications: Dyspnea CAD Medications: ASA ATORVASTATIN METOPROLOL SERTRALINE OMEPRAZOLE Protocol: ROSLYN Max HR: 164 BPM 112% of Pred: 146 BPM Max BP: 130/80 mmHG Max Work Load: 7.0 METS Exercise stress test with exercise 5 min 1 sec of Roslyn Protocol, achieving 112% MPHR, with rerpots of moderate SOB, no chest pain, without any arrythmias, with normotensive response to exercise. Without EKG changes meeting criteria for ischemia. In recovery, breathing returned to baseline. Nuclear images pending. Test reviewed with Dr. Mendez. Referred By: Allen Mendez Electronically Signed By: Edgar Barbosa
--- OUTSIDE RECORDS SUMMARY | 2024-07-04 07:48 | XMS_ITS | Patient Health Record ---
Author Organization [facility] Address [address] [place] [address] Care Team Providers Care Stonecutter Hand Name Role Phone Arnie Sharifa NUNN Primary Care Provider Gigi Porter Jr Unavailable Allergies No Known Allergies Reason For Referral No Information Medications Medication SIG (Take, Route, Frequency, Duration) Notes Start Date End Date Status Sertraline HCl 25 MG 1 tablet Orally Onc e a day Active Alendronate Sodium 70 MG Oral for 84 Active Multivitamin Women 50+ - as directed Ora lly as needed Active Metoprolol Succinate ER 25 MG Orally Active Aspirin Adult Low Strength 81 MG 1 tablet Orally Once a day Active Vitamin D3 1000 UNIT 1 capsule Orally On ce a day Active Atorvastatin Calcium 80 MG Orally Active Immunizations Vaccine Route Administration Date Status Comme nts Influenza Unknown 12/04/2016 Administered Problems Problem Type SNOMED Code ICD Code Onset Dates Problem Status W/U Status Risk Notes Problem 855457627 Colon cancer screening (Z12.11) Active confirmed Problem 52311379 Slow transit constipation (K59.01) Active confirmed Problem 725591555 Generalized abdominal pain (R10.84) Active confirmed Problem 413320792 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 (Z79.82) Active confirmed Problem Gastroesophageal reflux disease (050871091) GERD (gastroesophageal reflux disease) (K21.9) Active confirmed Problem 59561824 Change in bowel function (R19.8) Active confirmed Problem 573122344 Gastroesophageal reflux disease, unspecified whether esophagitis present (K21.9) Active confirmed Encounters Encounter Location Date Provider Diagnosis [facility] [address] [place] [address] 03/07/2024 Gigi Mcnair Jr Plan Of Treatment Pending Test Test Name Order Date LIVER PROFILE 01/14/2023 LIPASE 01/14/2023 CBC w/o DIFF 01/14/2023 [id number] 01/14/2023 TSH reflex Free T4 01/14/2023 Future Test Test Name Order Date COLONOSCOPY 10/27/2017 UPPER GI ENDOSCOPY 01/21/2023 Next Appt Details Provider Name:Gigi jimenez Jr, 07/19/2024 09:20:00 AM, [address], [address], [place], [address], Insurance Providers Payer Name Payer Address Payer Phone Subscriber Number Group Number Insured Name Patient Relationship to Insured Coverage Start Date Coverage End Date MEDICARE OF [place] [address] [place] [address] [id number] KENYATTA UNDERWOOD Self - patient is the insured [facility] [address] [place], [place] [id number] KENYATTA UNDERWOOD Self - patient is the insured Medical (General) History Medical History History ICD Code Colonoscopy in November 2017, normal, ten- year followup Breast cancer left, lumpectomy chemoradi ation and hormone therapy Depression Hyperlipidemia Degenerative joint disease/osteoarthriti s coronary artery disease, stent placement 06/2015 fatty liver Vitamin D deficiency Gastroesophageal reflux disease Surgical History Surgery Date(Month/Year) Left lumpectomy, lymph node dissection Ectopic with oopho rectomy, subsequent hysterectomy 2014 for prolapse Coronary artery disease with stent place 2015
--- OUTSIDE RECORDS SUMMARY | 2024-07-04 07:48 | XMS_ITS ---
Author Organization [facility] Address [address] [place] [address] Care Team Providers Care Masticator Name Role Phone Sharifa Gaitan CNP Primary Care Provider Christiano Mcnair Jr, Gigi Luis REASON FOR VISIT Patient presents today for gerd Encounters Encounter Location Date Provider Diagnosis [facility] [address] [place] [address] 03/08/2024 Gigi Mcnair Jr Plan Of Treatment Next Appt Details Provider Name:Gigi jimenez Jr, 07/19/2024 09:20:00 AM, [address] [place] [address], [address], [place], [address], Progress Notes * LAURANhi JENMARKEDOB:1950 (73 yo F)Acc No.[id number]:03/08/2024 Progress Notes Patient:?KENYATTA UNDERWOOD Provider:?Gigi Mcnair MD :1950???Age:73 Y???Sex:Female D ate:03/08/2024 Address: [address] [id number] Pcp:Sharifa Gaitan CNP Subjective: * Chief Complaints: * ???1. Patient presents today for gerd. * Medical History:? Objective: * Vitals:? Assessment: Plan: * Treatment: * * The named appointment provid er may or may not be the originator of this progress note, and it is not deemed complete until electronically signed by the appointment provider. Sign off status: Pending * Provider:?Gigi Mcnair MD Date:?1 05/09/2023 Generated for Marlon justice/Lindsay/Alok on:?07/04/2024 07:47 AM EDT
--- OUTSIDE RECORDS SUMMARY | 2024-07-04 07:48 | XMS_ITS ---
Author Organization [facility] Address [address] [place] [address] Care Team Providers Care Access Developer Name Role Phone Arnie Sharifa NUNN Primary Care Provider Christiano Mcnair Jr, Gigi Luis [phone] REASON FOR VISIT r/s Encounters Encounter Location Date Provider Diagnosis [facility] [address] [facility] [address] [facility] [address] [place] [address] 03/07/2024 Gigi Mcnair Jr Plan Of Treatment Next Appt Details Provider Name:Gigi jimenez Jr, 07/19/2024 09:20:00 AM, [address] [place] [address], [address], [place], [address], Progress Notes * BEATRICE UNDERWOODEDOB:1950 (73 yo F)Acc No.[id number]:03/07/2024 Patient:?LAURAJEN HankinsNNE :1950???Age:73 Y???Sex:Female Address: [place] [address] * true * Date:? Generated for Jonasi reshma/Lindsay/eTransmitting on:?07/04/2024 07:47 AM EDT
--- OUTSIDE RECORDS SUMMARY | 2024-07-04 07:48 | XMS_ITS ---
Author Organization [facility] Address [address] [place] [address] Care Team Providers Care Grain Weigher Name Role Phone Arnie Sharifa NUNN Primary Care Provider Christiano Mcnair Jr, Gigi Luis [phone] REASON FOR VISIT pathology Encounters Encounter Location Date Provider Diagnosis [facility] [address] [place] [address] 03/08/2023 Gigi Mcnair Jr Plan Of Treatment Next Appt Details Provider Name:Gigi jimenez Jr, 07/19/2024 09:20:00 AM, [address] [place] [address], [address], [place], [address], Progress Notes * BEATRICE UNDERWOODEDOB:1950 (72 yo F)Acc No.[id number]:03/08/2023 Patient:?KENYATTA UNDERWOOD :1950???Age:72 Y???Sex:Female Address:[place] [address] * true * Date:? Generated for Printi reshma/Fajose l/eTransmitting on:?07/04/2024 07:48 AM EDT
== END ==
LOC: HO.CARD 07:44
PROVIDERS: PCP Nurse Practitioner Family; Visit Provider Internal Medicine
DX: R07.2 Precordial pain (principal); I25.10 Atherosclerotic heart disease of native coronary artery without angina pectoris
CPT/HCPCS: 78452; 93017; A9500

== ENCOUNTER → 2024-07-04 07:47 | Outpatient (BNV) | payer MEDICARE, BC, SELFPAY | PROVIDERS: PCP Nurse Practitioner Family | DX: R06.02 Shortness of breath (principal) | CPT/HCPCS: 78452; 93016; 93018 ==

== ENCOUNTER 2024-07-12 09:39 | Outpatient (AMB) | payer MEDICARE, BC, SELFPAY ==
[2024-07-12 09:41] VITALS: BP 120/60; PULSE 102; BMI 26.9
--- NOTE | 2024-07-12 09:41 | A.OFFVIS_ITS ---
Vital Signs 07/12/24 09:41 Height 5 ft 4 in Weight 156 lb 15.506 oz BMI 26.9 BP 120/60 Blood Pressure Location Rt brachial Position Sitting Pulse 102 H Pulse Source Pulse Oximeter Intake Visit Reasons: fu echo and mibi Business Systems Consultant Required: No Accompanied by: Self / Same As Patient Allergies No Known Allergies [No Known Allergies*] Allergy (Verified 12/10/22 09:22) Medication List - Last Reconciled 07/12/24 by Allen Mendez MD aspirin (Adult Low Dose Aspirin) 81 mg PO DAILY atorvastatin 80 mg PO DAILY cholecalciferol (vitamin D3) 50 mcg PO DAILY metoprolol succinate ER 25 mg PO DAILY multivitamin 1 tab PO DAILY omega-3 fatty acids (Fish Oil Concentrate) 1,000 mg PO DAILY sertraline 50 mg PO DAILY HPI Comments Details: Denise returns for follow-up regarding coronary artery disease.? To recall, she underwent cardiac catheterization and drug-eluting stenting of the LAD in 2016. She does not have any overt symptoms like angina. Recently, she has been noticing some symptoms like feeling fatigue and tired. Not able to keep up when she is walking outside. She has completed an echocardiogram/stress test. No new concerns. Feels just about the same as before. [facility] Medical History Elevated cholesterol Atherosclerotic cardiovascular disease Surgical History H/O colonoscopy Hx of heart artery stent Stented coronary artery H/O: hysterectomy H/O lumpectomy Family History Mother Heart disease Atrial fibrillation Heart valve replaced Dementia Father Heart disease Heart attack Alcoholic Brother CAD (coronary artery disease) Social History Alcohol intake: current Alcohol intake frequency: a few times a month Patient Tobacco Use Status: Never used Tobacco Review of Systems Const Denies chills, Denies fatigue, Denies fever(s), Denies weight gain and Denies weight loss ENT Denies dizziness Card Denies chest pain, Denies leg edema, Denies lightheadedness, Denies palpitations, Denies dyspnea on exertion, Denies orthopnea and Denies other Resp Denies cough and Denies dyspnea on exertion GI Denies hematochezia and Denies change in stool character Musc Denies abnormal gait, Denies muscle weakness, Denies numbness, Denies radiating pain into limb and Denies tingling Neuro Denies abnormal gait, Denies dizziness, Denies numbness and Denies tingling Endo Denies fatigue and Denies palpitations Physical Exam Vital Signs: Last Vital Signs Pulse 102 H 07/12/24 09:41 BP 120/60 07/12/24 09:41 BMI result Body Mass Index 26.9 Const General: comfortable and no acute distress Orientation/consciousness: patient oriented x3 HEENT Other: Unremarkable Head: Yes normal to inspection Neck Neck: Yes normal visual inspection Chest Chest palpation & inspection: normal inspection of the chest Resp Auscultation: clear to auscultation bilaterally Cardio Palpation: normal PMI Heart sounds: S1 normal heart sound present, S2 normal heart sound present, no gallops, no murmurs and no rubs GI Palpation (GI): Soft to palpation Back/Spine/Pelvis Other: unremarkable Skin General skin exam: no rashes or lesions noted Neuro General: patient oriented x3 Extrem General: Yes normal to inspection Psych Mental Status: mental status grossly normal Assessment & Plan Assessment & Plan (1) Atherosclerotic cardiovascular disease: Code(s): I25.10 - Atherosclerotic heart disease of [place] coronary artery without angina pectoris Category: Medical (2) Stented coronary artery: Code(s): Z95.5 - Presence of coronary angioplasty implant and graft Category: Surgical Plan Cardiac catheterization-2016; drug-eluting stent to proximal and mid LAD. Balloon angioplasty of ostial 1st diagonal. Diffuse severe disease in distal LAD. Mid circumflex with 40% stenosis. Recent echocardiogram with LVEF of 55-60%. Normal peak global longitudinal strain. Mild posterior mitral leaflet bowing with mild regurgitation. Myocardial perfusion imaging study shows no ischemia. Fixed defect of the anterior apex, artifactual versus prior nontransmural infarct. Can continue current medications including aspirin, beta-blockers, statins. Regular physical activity. LDL cholesterol 63 mg/dL; triglycerides 70 mg/dL. Follow-up one year. In the interim, she will call with any ongoing concerns. Coding Level of Care Code Est Pt Level 4 (63497) Complex EM visit Add On G2211 Diagnoses Atherosclerotic cardiovascular disease I25.10 Stented coronary artery Z95.5
--- OUTSIDE RECORDS SUMMARY | 2024-07-12 10:31 | XMS_ITS | Patient Health Record ---
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.82) Active confirmed Problem Gastroesophageal reflux disease (631037918) GERD (gastroesophageal reflux disease) (K21.9) Active confirmed Problem 12768603 Change in bowel function (R19.8) Active confirmed Problem 941036152 Gastroesophageal reflux disease, unspecified whether esophagitis present (K21.9) Active confirmed Encounters Encounter Location Date Provider Diagnosis [facility] [address] [place] [address] 03/07/2024 Gigi Mcnair Jr Plan Of Treatment Pending Test Test Name Order Date LIVER PROFILE 01/14/2023 LIPASE 01/14/2023 CBC w/o DIFF 01/14/2023 OBSX3 01/14/2023 TSH reflex Free T4 01/14/2023 Future Test Test Name Order Date COLONOSCOPY 10/27/2017 UPPER GI ENDOSCOPY 01/21/2023 Next Appt Details Provider Name:Gigi jimenez Jr, 07/19/2024 09:20:00 AM, [address], [address], [place], [address], Insurance Providers Payer Name Payer Address Payer Phone Subscriber Number Group Number Insured Name Patient Relationship to Insured Coverage Start Date Coverage End Date MEDICARE OF [place] [address] [facility] [place] [address] [id number] KENYATTA UNDERWOOD Self - patient is the insured [facility] [address] [place], [place] [id number] KENYATTA UNDERWOOD Self - patient is the [...]
--- OUTSIDE RECORDS SUMMARY | 2024-07-12 10:31 | XMS_ITS ---
Author Organization [facility] Address [address] [place] [address] Care Team Providers Care Wine Maker Name Role Phone Sharifa Gaitan CNP Primary Care Provider Christiano Mcnair Jr, Gigi Luis REASON FOR VISIT Patient presents today for gerd Encounters Encounter Location Date Provider Diagnosis [facility] [address] [place] [address] 03/08/2024 Gigi Mcnair Jr Plan Of Treatment Next Appt Details Provider Name:Gigi jimenez Jr, 07/19/2024 09:20:00 AM, [address] [place] [address], [address], [place], [address], Progress Notes * LAURANih JENMARKEDOB:1950 (73 yo F)Acc No.[id number]:03/08/2024 Progress Notes Patient:?KENYATTA UNDERWOOD Provider:?Gigi Mcnair MD :1950???Age:73 Y???Sex:Female D ate:03/08/2024 Address: [id number] Pcp:Sharifa Gaitan CNP Subjective: * Chief Complaints: [...] MD Date:?1 05/09/2023 Generated for Marlon justice/Lindsay/Alok on:?07/12/2024 10:31 AM EDT
--- OUTSIDE RECORDS SUMMARY | 2024-07-12 10:31 | XMS_ITS ---
Author Organization [facility] Address [address] [place] [address] Care Team Providers Care Flap Presser Name Role Phone Arnie Sharifa NUNN Primary Care Provider Christiano Mcnair Jr, Gigi Luis REASON FOR VISIT r/s Encounters Encounter Location Date Provider Diagnosis [facility] [address] [place] [address] 03/07/2024 Gigi Mcnair Jr Plan Of Treatment Next Appt Details Provider Name:Gigi jimenez Jr, 07/19/2024 09:20:00 AM, [address] [place] [address], [address], [place], [address], Progress Notes * BEATRICE UNDERWOODEDOB:1950 (73 yo F)Acc No.[id number]:03/07/2024 Patient:?LAURAJEN HankinsNNE :1950???Age:73 Y???Sex:Female Address: [place] [address] * true * Date:? Generated for Printi reshma/Lindsay/eTransmitting on:?07/12/2024 10:31 AM EDT
--- OUTSIDE RECORDS SUMMARY | 2024-07-12 10:32 | XMS_ITS ---
Author Organization [facility] Address [address] [place] [address] Care Team Providers Care Stripper Shovel Operator Name Role Phone Arnie Sharifa NUNN Primary Care Provider Christiano Mcnair Jr, Gigi Luis [phone] REASON FOR VISIT pathology Encounters Encounter Location Date Provider Diagnosis [facility] [address] [place] [address] 03/08/2023 Giig Mcnair Jr Plan Of Treatment Next Appt Details Provider Name:Gigi jimenez Jr, 07/19/2024 09:20:00 AM, [address] [place] [address], [address], [place], [address], Progress Notes * BEATRICE UNDERWOODEDOB:1950 (72 yo F)Acc No.[id number]:03/08/2023 Patient:?KENYATTA UNDERWOOD :1950???Age:72 Y???Sex:Female Address:[place] [address] * true * Date:? Generated for Printi reshma/Famichelleg/eTransmitting on:?07/12/2024 10:31 AM EDT
== END 2024-07-12 09:59 | disposition home or self-care (01) ==
LOC: HO.HCS 09:40
PROVIDERS: PCP Nurse Practitioner Family; Visit Provider Internal Medicine
DX: I25.10 Atherosclerotic heart disease of native coronary artery without angina pectoris (principal); Z95.5 Presence of coronary angioplasty implant and graft
CPT/HCPCS: 99214; G2211

== ENCOUNTER → 2024-07-12 09:39 | Outpatient (BNVA) | payer MEDICARE, BC, SELFPAY | PROVIDERS: PCP Nurse Practitioner Family; Visit Provider Internal Medicine | DX: I25.10 Atherosclerotic heart disease of native coronary artery without angina pectoris (principal); Z95.5 Presence of coronary angioplasty implant and graft | CPT/HCPCS: 99212 ==

== ENCOUNTER 2024-09-08 06:02 | Outpatient (REF) | payer MEDICARE, BC, SELFPAY ==
--- OUTSIDE RECORDS SUMMARY | 2024-09-08 06:05 | XMS_ITS ---
Author Organization [facility] Address [address] [place] [address] Care Team Providers Care Pipeline Integrity Engineer Name Role Phone Sharifa Gaitan CNP Primary Care Provider Gigi Porter Jr REASON FOR VISIT Patient presents today for gerd Encounters Encounter Location Date Provider Diagnosis [facility] [address] [place] [address] 03/08/2024 Gigi Mcnair Jr Plan Of Treatment No Information Progress Notes * BEATRICE UNDERWOODEDOB:1950 (73 yo F)Acc No.[id number]:03/08/2024 Progress Notes Patient:?KENYATTA UNDERWOOD Provider:?Gigi Mcnair MD :1950???Age:73 Y???Sex:Female D ate:03/08/2024 [facility] [address] [facility] [place] Pcp:Sharifa Gaitan CNP Subjective: * Chief Complaints: [...] Mcnair MD Date:?1 05/09/2023 Generated for Marlon justice/Lindsay/Jeannineitting on:?09/08/2024 06:04 AM EDT
[2024-09-08 07:56] LABS: Alanine Aminotransferase 31 U/L (0-31); Albumin Level 4.2 g/dL (3.5-5.0); Alkaline Phosphatase 55 U/L (39-117); Anion Gap 10 (12-20); Aspartate Amino Transferase 30 U/L (5-31); Bilirubin Total 0.3 mg/dL (0.0-1.0); Blood Urea Nitrogen 20 mg/dL (9-16); Calcium 9.9 mg/dL (8.4-10.2); Carbon Dioxide 27 mmol/L (22-29); Chloride 109 mmol/L (96-108); Cholesterol 140 mg/dL (<200); Estimated Glomerular Filt Rate 55; Glucose Random 87 mg/dL (60-115); HDL Cholesterol 56 mg/dL (>40); LDL Cholesterol Calculated 71 mg/dL (<100); Potassium 4.1 mmol/L (3.3-5.1); Sodium 142 mmol/L (135-145); Total Protein 7.4 g/dL (6.5-8.0); Triglycerides 67 mg/dL (<150)
[2024-09-08 08:11] LABS: TSH reflex Free T4 5.49 uIU/mL (0.32-4.0); Vitamin D 25-OH Total 55.9 ng/mL (>30)
[2024-09-08 08:51] LABS: Free T4 (Free Thyroxine) 0.91 ng/dL (0.71-1.85)
== END 2024-09-08 06:03 | disposition home or self-care (01) ==
LOC: HO.LAB 06:02
PROVIDERS: PCP Nurse Practitioner Family; Visit Provider Nurse Practitioner Family
DX: Z00.00 Encounter for general adult medical examination without abnormal findings (principal); E03.8 Other specified hypothyroidism; M81.0 Age-related osteoporosis without current pathological fracture; E78.5 Hyperlipidemia, unspecified
CPT/HCPCS: 36415; 80053; 80061; 82306; 84439; 84443